=== PATIENT | male | born 1935 | race Caucasian/White ===

== ENCOUNTER 2018-04-12 14:51 | Emergency (ER) | payer MEDICARE ==
[2018-04-12 16:09] LABS: Bilirubin Negative (Negative); Blood, Urine Large (Negative); Clarity Clear (Clear); Glucose, Urine (Dipstick) Negative (Negative); Leukocyte Negative (Negative); Nitrite Negative (Negative); Protein, Urine (Dipstick) Negative (Neg-Trace); Specific Gravity, Urine 1.015 (1.005-1.030); Urobilinogen 0.2 mg/dL (0.2-1.0); pH, Urine 6.5 (5.0-9.0)
[2018-04-12 16:11] LABS: Squamous Epithelial 0-3 HPF (0-3)
== END 2018-04-12 17:00 | disposition home or self-care (01) ==
LOC: NAV ERS 14:51
DX: R33.9 Retention of urine, unspecified (principal); I10 Essential (primary) hypertension; F32.9 Major depressive disorder, single episode, unspecified; Z86.73 Personal history of transient ischemic attack (TIA), and cerebral infarction without residual deficits; Z79.899 Other long term (current) drug therapy
CPT/HCPCS: 51702; 81003; 81015

== ENCOUNTER 2018-09-17 10:48 | Emergency (ER) | payer MEDICARE ==
[~2018-09-17 10:48] MED LIST: Iopamidol 370 76% 100 ML VIAL ONE
[2018-09-17 12:19] LABS: Bilirubin Negative (Negative); Blood, Urine Small (Negative); Clarity Clear (Clear); Glucose, Urine (Dipstick) Negative (Negative); Leukocyte Negative (Negative); Nitrite Negative (Negative); Protein, Urine (Dipstick) Negative (Neg-Trace); Urobilinogen 0.2 mg/dL (0.2-1.0); pH, Urine 5.5 (5.0-9.0)
[2018-09-17 12:20] LABS: Bacteria/HPF None Seen HPF (None Seen); Squamous Epithelial 0-3 HPF (0-3); WBC/HPF 0-3 HPF (0-3)
[2018-09-17 12:56] LABS: #Basophils 0.1 thou/uL (0.0-0.2); #Eosinphils 0.3 thou/uL (0.0-0.7); #Lymphocytes 2.1 thou/uL (1.20-3.40); #Monocytes 0.6 thou/uL (0.11-0.59); #Neutrophils 4.4 thou/uL (1.40-6.50); %Basophils 0.8 % (0.0-1.0); %Eosinophils 3.9 % (0.0-10.0); %Monocytes 8.5 % (0.0-10.0); %Neutrophils 58.9 % (42.0-75.0); Mean Corpuscular HGB CONC 32.9 g/dL (32.0-36.0); Mean Corpuscular Hemoglobin 30.1 pg (27.0-31.0); Mean Corpuscular Volume 91.4 fL (78.0-98.0); Platelet Count 199 thou/uL (130-400); RBC Distribution Width 12.2 % (11.5-14.5); Red Blood Cell (RBC) Count 5.65 mill/uL (4.70-6.10); White Blood Cell (WBC) Count 7.4 thou/uL (4.8-10.8)
[2018-09-17 13:04] LABS: INR-International Normal Ratio 1.1; PTT 26.4 SEC (22.9-36.1); Prothrombin Time 13.9 SEC (12.0-14.7)
[2018-09-17 13:12] LABS: ALT (SGPT) 26 U/L (8-55); AST (SGOT) 23 U/L (5-34); Alkaline Phosphatase 68 U/L (40-150); Anion Gap 14 mmol/L (10-20); BUN (Urea Nitrogen) 15 mg/dL (8.4-25.7); Bilirubin, Total 0.6 mg/dL (0.2-1.2); Calc. Creatinine Clearance 0 mL/min (70-130); Calcium 9.4 mg/dL (7.8-10.44); Carbon Dioxide 25 mmol/L (23-31); Chloride 104 mmol/L (98-107); Estimated GFR-MDRD 77; Glucose 86 mg/dL (83-110); Potassium 3.9 mmol/L (3.5-5.1); Sodium 139 mmol/L (136-145)
--- NOTE | 2018-09-17 16:22 | CT ---
CT ABDOMEN PELVIS WITH AND WITHOUT CONTRAST COMPARISON: None HISTORY: Hematuria FINDINGS: On the noncontrast portion of the examination, there are mild atelectatic changes in the lung bases. No pericardial effusion. There is no nephroureteral lithiasis or hydroureteral nephrosis. No secondary evidence of a recently passed stone. Bilateral renal hypodensities are similar to 2015 exam suggestive of benign cysts. No abnormal renal enhancing mass. No abnormal urothelial enhancement. The prostate is moderately enlarged. On the delayed phase of contrast, there are no filling defects within the renal calyces, pelves, nor the ureters. There are moderate bilateral fat-containing direct inguinal hernias. The aorta is mildly ectatic without aneurysmal dilatation. The visualized portion of the liver, sple en, and pancreas unremarkable. The dome of the liver is not completely interrogated on this examinat ion nor are the lung bases. No retroperitoneal adenopathy. No internal iliac adenopathy. The lateral wall is mildly thickened, although the urinary bladder is not fully distended. No acute osseous abnormality. The appendix is visualized and is normal. IMPRESSION: 1. No nephroureteral lithiasis or hydroureteral nephrosis. No secondary evidence of recently passed stone. 2. Normal abnormal renal enhancing mass nor urothelial mass. 3. No filling defect within the renal calyces, pelvic, ureters, nor the posterior urinary bladder. 4. Enlarged prostate which may be a source of the hematuria. POS: [facility]
== END 2018-09-17 15:20 | disposition home or self-care (01) ==
LOC: NAV ERS 10:48
DX: R31.9 Hematuria, unspecified (principal); I10 Essential (primary) hypertension; M81.0 Age-related osteoporosis without current pathological fracture; Z86.73 Personal history of transient ischemic attack (TIA), and cerebral infarction without residual deficits; F03.90 Unspecified dementia, unspecified severity, without behavioral disturbance, psychotic disturbance, mood disturbance, and anxiety; F32.9 Major depressive disorder, single episode, unspecified; Z79.899 Other long term (current) drug therapy
CPT/HCPCS: 74178; 80053; 81003; 81015; 85025; 85610; 85730; 87086